=== PATIENT | male | born 1975 ===

== ENCOUNTER 2018-01-09 05:39 | Outpatient (CLI) | payer MEDICARE, OTHER ==
[~2018-01-09] VITALS: Ht 170.2 cm; Wt 104.3 kg
[2018-01-09] MEDS ORDERED: LACO100T2 PO (11:45)
[2018-01-09] MEDS ORDERED: PANT20TA3 PO (11:52)
[2018-01-09] MEDS ORDERED: DULO60CA6 PO (11:52)
[2018-01-09] MEDS ORDERED: LITH600C PO (11:52)
[2018-01-09] MEDS ORDERED: TPR25T PO (11:52)
== END 2018-01-09 11:53 | disposition home or self-care (01) ==
LOC: PREOP 05:39
PROVIDERS: ATTEND Surgery
DX: Z01.818 Encounter for other preprocedural examination (principal)

== ENCOUNTER 2020-10-28 05:40 | Outpatient (CLI) | payer MEDICARE, OTHER ==
[~2020-10-28] VITALS: Ht 170.2 cm; Wt 104.4 kg
[~2020-10-28 05:40] MED LIST: DULO60CA6 PO; LACO100T2 PO; LITH600C PO; PANT20TA18 PO; TPR25T PO
[2020-10-29] MEDS ORDERED: SITA100T12 PO (09:30)
[2020-10-29] MEDS ORDERED: MIRT-96 PO (09:30)
== END 2020-10-29 10:03 | disposition home or self-care (01) ==
LOC: PREOP 05:40
PROVIDERS: ATTEND Surgery
DX: Z01.818 Encounter for other preprocedural examination (principal); E66.01 Morbid (severe) obesity due to excess calories